=== PATIENT | female | born 1950 | race Caucasian/White ===

== ENCOUNTER 2017-11-10 14:52 | Outpatient (CLI) | payer MEDICARE, BC | END 2017-11-10 14:53 | disposition home or self-care (01) | LOC: BICMAMMO 14:52 | PROVIDERS: ATTEND Family Medicine | DX: N63.20 Unspecified lump in the left breast, unspecified quadrant (principal) | CPT/HCPCS: 76642; 77066; G0279 ==

== ENCOUNTER → 2017-11-17 | Day surgery (SDC) | payer MEDICARE, BC | LOC: BICULT 12:37 | PROVIDERS: ATTEND Family Medicine | PROC: 0HBU3ZX Excision of Left Breast, Percutaneous Approach, Diagnostic (ICD-10-PCS; principal; 2017-11-17) | DX: C50.412 Malignant neoplasm of upper-outer quadrant of left female breast (principal) | CPT/HCPCS: 19083; 88305 ==

== ENCOUNTER 2017-12-08 11:04 | Outpatient (CLI) | payer MEDICARE, BC ==
[2017-12-08 11:37] LABS: #Basophils 0.1 thou/uL (0.0-0.2); #Eosinphils 0.3 thou/uL (0.0-0.7); #Lymphocytes 2.2 thou/uL (1.20-3.40); #Monocytes 0.6 thou/uL (0.11-0.59); %Basophils 1.1 % (0.0-1.0); %Eosinophils 4.1 % (0.0-10.0); %Lymphocytes 26.3 % (21.0-51.0); %Monocytes 7.3 % (0.0-10.0); %Neutrophils 61.3 % (42.0-75.0); Hemoglobin 13.8 g/dL (12.0-16.0); Mean Corpuscular HGB CONC 32.8 g/dL (32.0-36.0); Mean Corpuscular Hemoglobin 29.7 pg (27.0-31.0); Mean Corpuscular Volume 90.6 fL (78.0-98.0); Mean Platelet Volume 7.1 fL (7.4-10.4); Platelet Count 256 thou/uL (130-400); RBC Distribution Width 12.9 % (11.5-14.5); Red Blood Cell (RBC) Count 4.65 mill/uL (4.20-5.40); White Blood Cell (WBC) Count 8.2 thou/uL (4.8-10.8)
[2017-12-08 12:00] LABS: Anion Gap 10 mmol/L (10-20); BUN (Urea Nitrogen) 21 mg/dL (9.8-20.1); Calc. Creatinine Clearance 0 mL/min (70-130); Calcium 9.3 mg/dL (7.8-10.44); Carbon Dioxide 30 mmol/L (23-31); Chloride 102 mmol/L (98-107); Estimated GFR-MDRD 82; Glucose 90 mg/dL (80-115); Potassium 3.7 mmol/L (3.5-5.1); Sodium 138 mmol/L (136-145)
== END 2017-12-08 11:05 | disposition home or self-care (01) ==
LOC: LABBT 11:04
PROVIDERS: ATTEND Specialist
DX: Z01.812 Encounter for preprocedural laboratory examination (principal); C50.912 Malignant neoplasm of unspecified site of left female breast
CPT/HCPCS: 80048; 85025; 93005; 93010

== ENCOUNTER 2017-12-13 08:59 | Day surgery (SDC) | payer MEDICARE, BC ==
[2017-12-08 11:38] VITALS: BMI 30.1
[2017-12-13] MEDS ORDERED: Ketorolac Tromethamine 30 MG/ML VIAL ONE (12:02)
[2017-12-13] MEDS ORDERED: Fentanyl 100 MCG/2 ML VIAL ONE ×3 (12:31→15:42)
[2017-12-13] MEDS ORDERED: Bupivacaine/Epinephrine 0.25% 30 ML VIAL ONE (12:37)
[2017-12-13] MEDS ORDERED: Isosulfan Blue 50 MG/5 ML VIAL ONE (12:37)
[2017-12-13] MEDS ORDERED: CEFAZOLIN/Water 2 GM/20 ML SYRINGE ONE (12:59)
--- NOTE | 2017-12-13 13:43 | NM ---
LEFT BREAST LYMPHOSCINTIGRAPHY: Date: 12/13/17 HISTORY: Malignant neoplasm of unspecified site of the left female breast. RADIOPHARMACEUTICAL: 400 microcuries technetium-99m filtered sulfur colloid injected in the left periareolar breast in div ided doses. FINDINGS: There is faint focal uptake in the left axilla. No tracer localization is noted in the internal mamma ry or right axillary lymph nodes. IMPRESSION: Faint visualization of probable left axillary lymph node (sentinel). POS: DORA
[2017-12-13] MEDS ORDERED: Dexamethasone 20 MG/5 ML VIAL ONE (14:59)
[2017-12-13] MEDS ORDERED: PROPOFOL 200 MG/20 ML VIAL ONE (14:59)
[2017-12-13] MEDS ORDERED: Lidocaine 1% PF 5 ML VIAL ONE (14:59)
[2017-12-13] MEDS ORDERED: Ondansetron HCl/PF 4 MG/2 ML Vial ONE (14:59)
--- NOTE | 2017-12-13 15:45 | MMO ---
SURGICAL SPECIMEN RADIOGRAPH OF THE LEFT BREAST: FINDINGS: There is a mass with a surgical clip and a localization wire on the submitted specimen radiograph. The report was called over the telephone to Dr. Shaun Garsia at 2:14 p.m. FERMÍN SUÁREZ POS: DORA
--- NOTE | 2017-12-14 13:38 | OP ---
DATE OF PROCEDURE: 12/13/2017 PREOPERATIVE DIAGNOSIS: Left breast cancer. POSTOPERATIVE DIAGNOSIS: Left breast cancer. OPERATIONS PERFORMED: Left breast ultrasound-guided needle localization, left breast lumpectomy, att empted left axillary sentinel lymph node biopsy, left axillary lymph node dissection. SURGEON: Shaun Garsia M.D. ANESTHESIA: General endotracheal. INDICATIONS: The patient is a 67-year-old white female. She had presented with biopsy proven left b reast cancer in the upper outer portion of her breast. This was relatively close to the axilla. Aft er discussing options, she has elected to proceed with lumpectomy and sentinel lymph node biopsy. Sh e understands that she will likely require postoperative radiation therapy. Preoperative lymphoscintigraphy was attempted, but no nuclear tracer was found within the left axilla . DESCRIPTION OF OPERATION: Informed consent was obtained. The patient was taken to the operating adelaida m where general endotracheal anesthesia was obtained with the patient in supine position. Left breas t was infiltrated with 4 mL of Lymphazurin in the periareolar subdermal tissue and the breast was mas saged for five minutes. Breast was then prepped with ChloraPrep and draped in sterile fashion. Atte ntion was turned to the left axilla. I examined this with the Neoprobe and could find no area of inc reased radioactivity. I then utilized the ultrasound to exactly padmini the location of the malignancy. This was close enough in proximity to the axilla. So, it was decided it will be best to perform th e lumpectomy and the axillary portion of the operation through this same incision. Needle localization was performed using a Kopans wire placed in a lateral to medial fashion through t he inferior portion of the lesion. An elliptical incision was fashioned to incorporate the area of the malignancy. Even though this can cer was relatively large (about 3 cm in diameter) the large size of this patient's breast allowed cole ropriate excision of the overlying skin without undue deformity. Additionally, the malignancy was cl ose to the skin and skin excision would be necessary to achieve appropriate margins. After the incision was created, I again interrogated the axilla with the Neoprobe and again found no evidence of increased radioactivity. I then proceeded with the lumpectomy. Utilizing the elliptical incision, dissection was carried through skin and subcutaneous tissue and a wide margin was obtained around the localizing needle and below the skin the palpable malignancy as well. The specimen was r emoved intact and passed off the field. I inspected the axilla one final time and again found no raul dence of increased radioactivity or blue staining. Blue staining was seen at the level of the malign corrina and it is my suspicion that the location of the malignancy did not allow passage of the lymphati cs from the breast into the axilla and I decided to proceed with an axillary node dissection. The lateral aspect of the pectoralis was dissected up to the axillary vein. Any tissue that was felt to potentially be lymphatics was divided between Hemoclips. The fatty and lymphatic tissue inferior to the axillary vein were dissected and swept out of the axilla inferiorly. There were a couple of visible lymph nodes within this tissue that were removed. The long thoracic and thoracodorsal nerves were identified and preserved. These were each carefully spared and the fatty tissue around this wa s dissected appropriately. The specimen was removed intact and passed off the field as axillary cont ents. Meticulous hemostasis obtained within the wound with electrocautery. A #19 round fluted drain was brought out through the inferior skin flap and secured with a 3-0 nylon suture. Because of the volume of tissue that was excised, I mobilized breast parenchymal flaps off the pector harinder inferiorly and medially to be able to better close the defect in a cosmetically appropriate fash ion. The wound was irrigated with sterile water and all irrigant was aspirated. The wound was close d in layers with 3-0 Vicryl and 4-0 Monocryl suture. Dermabond was placed externally. Occlusive wyatt ssing was placed over the drain exit site. There were no complications. The patient tolerated the p rocedure well and was taken to recovery room in stable condition.
== END 2017-12-13 18:00 | disposition home or self-care (01) ==
LOC: SDC 08:59
PROVIDERS: ATTEND Specialist
PROC: 0HBU0ZZ Excision of Left Breast, Open Approach (ICD-10-PCS; principal; 2017-12-13)
PROC: 07T60ZZ Resection of Left Axillary Lymphatic, Open Approach (ICD-10-PCS; 2017-12-13)
DX: C50.412 Malignant neoplasm of upper-outer quadrant of left female breast (principal); C77.3 Secondary and unspecified malignant neoplasm of axilla and upper limb lymph nodes; E78.5 Hyperlipidemia, unspecified; I10 Essential (primary) hypertension; I25.2 Old myocardial infarction; K21.9 Gastro-esophageal reflux disease without esophagitis; E66.9 Obesity, unspecified; Z68.30 Body mass index [BMI] 30.0-30.9, adult; Z87.891 Personal history of nicotine dependence; Z79.82 Long term (current) use of aspirin; Z79.899 Other long term (current) drug therapy; Z88.0 Allergy status to penicillin; Z88.2 Allergy status to sulfonamides; Z88.1 Allergy status to other antibiotic agents; Z17.0 Estrogen receptor positive status [ER+]
CPT/HCPCS: 19302; 38900; 76098; 78195; 88305; 88307; 96374; A9541; Q9968; J0131; J1100; J1885; J2001; J2405; J2704; J3010

== ENCOUNTER 2018-05-22 18:29 | Inpatient (IN) | payer MEDICARE, BC ==
[2018-05-22] MEDS ORDERED: Nitroglycerin 0.4 MG TAB (25 Tab Bottle) ONE (19:00)
[2018-05-22 19:05] LABS: #Eosinphils 0.3 thou/uL (0.0-0.7); #Lymphocytes 1.5 thou/uL (1.20-3.40); #Monocytes 0.5 thou/uL (0.11-0.59); %Basophils 0.7 % (0.0-1.0); %Eosinophils 5.4 % (0.0-10.0); %Lymphocytes 23.4 % (21.0-51.0); %Monocytes 8.3 % (0.0-10.0); %Neutrophils 62.2 % (42.0-75.0); Hemoglobin 13.4 g/dL (12.0-16.0); Mean Corpuscular HGB CONC 34.3 g/dL (32.0-36.0); Mean Corpuscular Hemoglobin 31.5 pg (27.0-31.0); Mean Corpuscular Volume 91.9 fL (78.0-98.0); Mean Platelet Volume 6.9 fL (7.4-10.4); Platelet Count 273 thou/uL (130-400); RBC Distribution Width 12.4 % (11.5-14.5); Red Blood Cell (RBC) Count 4.23 mill/uL (4.20-5.40); White Blood Cell (WBC) Count 6.4 thou/uL (4.8-10.8)
[2018-05-22 19:28] LABS: ALT (SGPT) 24 U/L (8-55); AST (SGOT) 28 U/L (5-34); Albumin 3.9 g/dL (3.4-4.8); Alkaline Phosphatase 134 U/L (40-150); Anion Gap 12 mmol/L (10-20); BUN (Urea Nitrogen) 18 mg/dL (9.8-20.1); Bilirubin, Total 0.6 mg/dL (0.2-1.2); CK (CPK) 175 U/L (29-168); Calc. Creatinine Clearance 0 mL/min (70-130); Calcium 9.1 mg/dL (7.8-10.44); Carbon Dioxide 25 mmol/L (23-31); Chloride 103 mmol/L (98-107); Estimated GFR-MDRD 67; Globulin 3.3 g/dL (2.4-3.5); Glucose 129 mg/dL (80-115); Potassium 3.1 mmol/L (3.5-5.1); Protein, Total 7.2 g/dL (6.0-8.3); Sodium 137 mmol/L (136-145)
--- NOTE | 2018-05-22 19:39 | RAD ---
PORTABLE AP CHEST X-RAY: 05/22/2018 HISTORY: Mid sternal chest pain for one hour. COMPARISON: 11/12/2013 FINDINGS: The left lateral costophrenic angle is excluded from view. There is persistent biapical pleural thic kening present. The lungs are otherwise clear. The cardiac silhouette and pulmonary vasculature are within normal limits. Surgical clips now overly the left axillary region. Vascular calcifications are seen in the thoracic aorta. IMPRESSION: No acute cardiopulmonary process. POS: DORA
[2018-05-22] MEDS ORDERED: Ondansetron PF 4 MG/2 ML Vial IVP PRN (21:23)
[2018-05-22] MEDS ORDERED: Ondansetron ODT 4 MG TAB SL PRN (21:23)
[2018-05-22] MEDS ORDERED: Acetaminophen 325 MG TAB PO PRN (21:23)
[2018-05-22 21:25] VITALS: BMI 29.7
[2018-05-22] MEDS: Sodium Chloride 0.9% 1,000 ML IV SCH (22:00)
[2018-05-22 22:24] LABS: Troponin I 0.071 ng/mL (< 0.028)
[2018-05-23] MEDS ORDERED: traMADol HCl 50 MG TAB PO PRN (00:15)
[2018-05-23 01:37] LABS: Troponin I 0.174 ng/mL (< 0.028)
[2018-05-23] MEDS ORDERED: Potassium Chloride 40 MEQ in Premix Bag 1 BAG IVPB SCH (05:15)
[2018-05-23] MEDS ORDERED: Enoxaparin Sodium 40 MG/0.4 ML SYRINGE SC SCH ×2 (05:15→09:00)
[2018-05-23] MEDS ORDERED: Potassium Chloride 40 MEQ in Sodium Chloride 0.9% 250 ML 250 ML IVPB SCH (05:30)
[2018-05-23] MEDS ORDERED: Enoxaparin Sodium 80 MG/0.8 ML SYRINGE SC SCH ×2 (05:45→18:00)
[2018-05-23 06:51] LABS: Anion Gap 10 mmol/L (10-20); BUN (Urea Nitrogen) 18 mg/dL (9.8-20.1); Calc. Creatinine Clearance 121 mL/min (70-130); Calcium 8.9 mg/dL (7.8-10.44); Carbon Dioxide 26 mmol/L (23-31); Chloride 107 mmol/L (98-107); Estimated GFR-MDRD 87; Glucose 114 mg/dL (80-115); Magnesium 1.7 mg/dL (1.6-2.6); Potassium 3.5 mmol/L (3.5-5.1); Sodium 139 mmol/L (136-145)
[2018-05-23 07:05] LABS: Troponin I 0.446 ng/mL (< 0.028)
[2018-05-23] MEDS ORDERED: Azelastine 137 MCG/Spray 30 ML NS PRN (07:59)
[2018-05-23] MEDS ORDERED: Aspirin 81 mg Enteric Coated Tablet PO SCH (09:00)
[2018-05-23] MEDS ORDERED: [UNRECOGNIZED DRUG - REMARK] PO SCH (09:00)
[2018-05-23] MEDS ORDERED: Aspirin 325 mg Enteric Coated Tablet PO SCH (09:00)
[2018-05-23] MEDS ORDERED: Communication Order-Pharmacy FS SCH (10:45)
[2018-05-23 10:55] LABS: Cardiac Risk 3.3 (Less than 4.5)
[2018-05-23] MEDS: Losartan 25 MG TAB PO SCH (11:43)
[2018-05-23] MEDS: Calcium Carbonate 500 MG ChewTAB PO SCH ×4 (11:43→20:18)
[2018-05-23] MEDS: Anastrozole 1 MG TAB PO SCH (11:43)
[2018-05-23] MEDS: Pantoprazole 40 MG GRANULES PACKET PO SCH (11:43)
[2018-05-23] MEDS: Clopidogrel Bisulfate 75 MG TAB PO SCH (11:43)
[2018-05-23] MEDS: Loratadine 10 MG TAB PO SCH (11:44)
[2018-05-23] MEDS: Sodium Chloride 0.9% 1,000 ML IV SCH (11:44)
--- NOTE | 2018-05-23 14:04 | HP ---
CHIEF COMPLAINT: Chest pain. HISTORY OF PRESENT ILLNESS: This is a 67-year-old female patient with a history of breast cancer, status post lumpectomy, status post chemotherapy and with a known history of coronary artery disease, who presents to the Emergency Department last night with complaints of sudden onset of substernal chest pain. The patient states that she has been in her usual state of health and doing quite well, when she was doing laundry and developed sudden substernal chest pain. She states that the pain was more severe than her episode of her ID in 2013. She states that the severity was 8/10. No radiation. Positive for shortness of breath. No diaphoresis. No nausea. The pain persisted until she presented to the Emergency Department, and she was given nitroglycerin and had significant relief of her pain. She has had no further episodes of chest pain or shortness of breath. She did feel anxious while she was in the Emergency Department. Stated her blood pressure had been rising and then when she got the nitroglycerin, her pain resolved. Her blood pressure has returned back to normal. PAST MEDICAL HISTORY: Breast cancer, status post lumpectomy, coronary artery disease, cardiac catheterization in 2013, hypertension, hyperlipidemia, gastroesophageal reflux disease, and history of osteoarthritis. ALLERGIES: BACTRIM, CEPHALEXIN, DOXYCYCLINE. SIDE EFFECTS; PENICILLIN, SULFAMETHOXAZOLE. MEDICATIONS: Include hydrochlorothiazide 12.5 mg daily, pantoprazole 40 mg daily, simvastatin 10 mg daily, Princess p.r.n., aspirin 81 mg daily, losartan 25 mg daily, anastrozole 1 mg daily, tramadol 50 mg daily p.r.n. pain. PAST SURGICAL HISTORY: , carpal tunnel release, hernia repair, varicose vein ablation, and breast lumpectomy. PSYCHIATRIC HISTORY: No anxiety or depression. SOCIAL HISTORY: Rare alcohol. No smoking, quit several years ago. REVIEW OF SYSTEMS: As per the history of present illness. CONSTITUTIONAL: She denies any recent fevers, chills, or recent illness. HEENT: Denies headache, visual or hearing changes. Positive history of allergic rhinitis. CARDIAC: As per the history of present illness. No palpitations. No shortness of breath. PULMONARY: Denies cough or hemoptysis. GI: Denies nausea, vomiting, abdominal pain, melena, or hematochezia. GENITOURINARY: Denies dysuria or hematuria. MUSCULOSKELETAL: Positive for chronic joint pain. ONCOLOGY: Positive for breast cancer. PHYSICAL EXAMINATION: VITAL SIGNS: Temperature 98.1, pulse of 86 and regular, respirations 17, blood pressure 114/64, and pulse ox is 94% on room air. GENERAL: She is awake and alert, in no acute distress. Speech is clear. HEENT: Mucosa is moist. NECK: Supple. No JVD, adenopathy, or bruits. HEART: Regular rate and rhythm. CHEST: Nontender. LUNGS: Clear bilaterally. No wheeze, rales, or rhonchi. ABDOMEN: Positive bowel sounds. Soft, nontender, and nondistended. No hepatosplenomegaly. EXTREMITIES: No clubbing or cyanosis. Trace edema bilaterally, worse on the right. No calf tenderness. NEUROLOGIC: Cranial nerves 2 through 12 are grossly intact. LABORATORY DATA: Sodium 139, potassium 3.5, chloride 107, CO2 of 26, BUN and creatinine of 18 and 0.68, serum glucose of 114, calcium of 8.9, magnesium of 1.7. Troponin I from last night 0.010, 0.071, 0.174, and 0.446. BNP was normal at 55.1. White blood cell count 6400, hemoglobin and hematocrit of 13.4 and 38.9, and platelets of 273. DIAGNOSTIC FINDINGS: Chest x-ray revealed no acute disease. EKG revealed normal sinus rhythm with no acute ST-T changes. ASSESSMENT AND PLAN: This is a 67-year-old female with known mild coronary artery disease from a cardiac catheterization in 2013 revealing 10% stenosis at the right coronary artery, now with chest pain and elevated troponin consistent with bhh-XN-pwoafwbkv myocardial infarction. 1. Sws-SV-xwusndfnf myocardial infarction. We will await Cardiology evaluation, possibly requiring repeat cardiac catheterization. 2. Hypertension. We will continue her medications. 3. Hyperlipidemia. We will continue statin therapy. 4. Known coronary artery disease. We will continue aspirin and Plavix. 5. History of breast cancer. We will continue her anastrazole. Job ID: [id number] [facility]
--- NOTE | 2018-05-23 14:20 | CON ---
DATE OF CONSULTATION: 05/23/2018 REASON FOR CONSULTATION: Uhw-YJ-wakpnqjbi myocardial infarction. HISTORY OF PRESENT ILLNESS: Ms. Coronado is a delightful 67-year-old woman, who is resting at home, feeling well, who had the sudden onset of substernal pain across her chest, it was intense. She thought perhaps it was indigestion. She waited a bit. Her initial blood pressure was not elevated, but then it became elevated, she went to the emergency room. She was given nitroglycerin, where her pain was relieved, subsequently found to have increased cardiac enzymes. PAST MEDICAL HISTORY: She does have a history of similar episode in 2014 with increased cardiac enzymes. She was stabilized and underwent cardiac catheterization and she is found to have no obstructive coronary artery disease. There was LAD bridge and 10% plaque in the right coronary artery, but no obstructive plaque. The patient did well following that. She was treated with high-intensity statins up until she thinks about a year ago. The patient has been done well since then and has been feeling fine up until yesterday. She quit smoking over 4 years ago. MEDICATIONS: At home, she was takin. Aspirin 81 mg a day. 2. Protonix 40 mg a day. 3. Calcium. 4. Tramadol. 5. Hydrochlorothiazide. 6. Simvastatin 10 mg each evening. 7. Losartan 25 mg a day. ALLERGIES: DOXYCYCLINE, CEPHALEXIN, PENICILLIN, AND TRIMETHOPRIM. REVIEW OF SYSTEMS: CONSTITUTIONAL: No significant weight gain or loss. VISION: No changes. HEARING: No changes. PULMONARY: No cough or wheezing. GASTROINTESTINAL: No nausea, vomiting, or diarrhea. Reflux has been controlled. SKIN: No rashes. NEUROLOGIC: No unilateral weakness or numbness. PSYCHIATRIC: No unusual depression or anxiety. HEMATOLOGIC: No unusual bruising. GENITOURINARY: No burning with urination. PHYSICAL EXAMINATION: GENERAL: This is a pleasant 67-year-old woman, in no distress, resting comfortably. VITAL SIGNS: Blood pressure 126/74 and pulse 83, regular. HEENT: Eyes, sclerae nonicteric. Mouth, mucous membranes moist. NECK: Supple. No lymphadenopathy. LUNGS: Clear. No wheezing, rales, or rhonchi. CARDIAC: Normal S1 and normal S2. There is no murmur, rub, or gallop. ABDOMEN: Soft and nontender. No hepatosplenomegaly. EXTREMITIES: Warm and dry. No clubbing. No cyanosis or edema. LABORATORY DATA: Peak troponin level is 0.466, it went from 0.071 to 0.174 to 0.466. EKG, incomplete right bundle branch block. The patient had a peak troponin in 2013 of 0.817. ASSESSMENT: 1. Zod-CK-uzpojvyqc myocardial infarction. 2. Previous qju-LQ-lmrbsyvhk infarction in 2014 with no obstructive coronary artery disease. 3. Incomplete right bundle branch block. 4. History of hypercholesterolemia. 5. Received enoxaparin this morning. PLAN: 1. Continue enoxaparin. 2. Check lipids. We will increase statin dose. 3. Discussed options about either repeating cardiac catheterization or doing a stress test. It has been 4-1/2 years since the cardiac catheterization and the most definitive test would be to repeat the cardiac catheterization. The patient agrees with that. She understands risk of stroke, heart attack, iodine allergy, loss of blood supply to leg or kidney, stent thrombosis, stent restenosis. She understands and wished to proceed. This will be arranged for tomorrow morning. Job ID: [id number]
[2018-05-23] MEDS ORDERED: Clopidogrel Bisulfate 300 MG TAB PO SCH (15:30)
[2018-05-23] MEDS ORDERED: Simvastatin 40 MG TAB PO SCH (21:00)
[2018-05-23] MEDS ORDERED: Atorvastatin Calcium 40 MG TAB PO SCH (21:00)
[2018-05-24] MEDS: Clopidogrel Bisulfate 75 MG TAB PO SCH (05:12)
[2018-05-24] MEDS: Anastrozole 1 MG TAB PO SCH (05:12)
[2018-05-24] MEDS: Losartan 25 MG TAB PO SCH (05:12)
[2018-05-24] MEDS: Loratadine 10 MG TAB PO SCH (05:12)
[2018-05-24] MEDS: Sodium Chloride 0.9% 1,000 ML IV SCH ×2 (05:14→15:51)
[2018-05-24] MEDS ORDERED: Diazepam 5 MG TAB PO SCH (06:00)
[2018-05-24] MEDS ORDERED: Midazolam HCl 2 mg/2 ml Vial ONE (07:20)
[2018-05-24] MEDS ORDERED: Fentanyl 100 MCG/2 ML VIAL ONE (07:20)
[2018-05-24] MEDS: Calcium Carbonate 500 MG ChewTAB PO SCH ×2 (08:14→15:51)
[2018-05-24] MEDS: Pantoprazole 40 MG GRANULES PACKET PO SCH (08:14)
[2018-05-24] MEDS ORDERED: Acetaminophen/Codeine 30-300mg Tablet PO PRN ×2 (08:17)
[2018-05-24] MEDS ORDERED: traMADol HCl 50 MG TAB PO PRN (08:17)
[2018-05-24] MEDS ORDERED: Nitroglycerin 0.4 MG TAB (25 Tab Bottle) SL PRN (08:17)
[2018-05-24] MEDS ORDERED: Sodium Chloride 0.9% 200 ML IV SCH (08:30)
[2018-05-24] MEDS ORDERED: Iopamidol 370 76% 100 ML VIAL ONE (09:47)
[2018-05-24 16:20] VITALS: BP 138/70; TEMP 98.6
--- NOTE | 2018-05-25 15:53 | EKG ---
Test Reason : Blood Pressure : / mmHG Vent. Rate : 096 BPM Atrial Rate : 096 BPM P-R Int : 144 ms QRS Dur : 092 ms QT Int : 376 ms P-R-T Axes : 059 -01 056 degrees QTc Int : 475 ms Normal sinus rhythm Possible Left atrial enlargement Low voltage QRS Borderline ECG Confirmed by MIKAELA FERGUSON ([id number]), staff editor MARGARITO GUADARRAMA ([id number]) on 05/25/2018 3:53:09 PM Referred By: Confirmed By:MIKAELA FERGUSON
[2018-05-25] MEDS ORDERED: Atorvastatin Calcium 40 MG TAB PO SCH (21:00)
--- NOTE | 2018-05-26 04:02 | DIS ---
DATE OF ADMISSION: 05/23/2018 DATE OF DISCHARGE: 05/24/2018 ADMISSION DIAGNOSIS: Egg-HS-vmmkcmgfi myocardial infarction. DISCHARGE DIAGNOSIS: Tft-UK-grrsbipzl myocardial infarction. OTHER DIAGNOSES: 1. 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 2. Known coronary artery disease. 3. Hypertension. 4. Hyperlipidemia. 5. History of breast cancer. PROCEDURES: 1. Telemetry monitoring. 2. Cardiac catheterization. 3. Rule out myocardial infarction protocol. CONSULTATIONS: Dr. Tan for Cardiology. HOSPITAL COURSE: This is a 67-year-old female patient, who was admitted following an episode of sudden onset of chest pain. She said it was more severe than her MD in 2013, for which she underwent a cardiac catheterization and found to have mild 10% plaque in her right coronary artery. She was pain-free during this episode after receiving nitroglycerin. In the emergency department, she did rule in for myocardial infarction with elevation in her cardiac enzymes. She was seen by Dr. Tan for evaluation and discussed options, and they opted for repeat cardiac catheterization due to her past history of the mild plaque in her coronary arteries as well as recurrence of her chest pain and elevation in cardiac enzymes. Her cardiac catheterization again revealed mild coronary artery disease with 10% plaque in her right coronary artery. She again was pain-free. Her medications were adjusted as per Dr. Tan and started on Plavix daily as well as increased her statin therapy to a more intense therapy and was stable for discharge later in the day. DISCHARGE PHYSICAL EXAMINATION: VITAL SIGNS: Temperature 98.6, pulse 75, respirations 16, blood pressure 138/70, and pulse ox is 99% on room air. GENERAL: She is awake and alert, no acute distress. Speech is clear. NECK: Supple. HEART: Regular rate and rhythm. LUNGS: Clear. EXTREMITIES: No edema. She is ambulating in the sood. Minimal pain from the catheter site. DISCHARGE MEDICATIONS: Include; 1. Arimidex 1 mg daily. 2. Aspirin 81 mg daily. 3. Lipitor 40 mg daily. 4. Plavix 75 mg daily. 5. Losartan 25 mg daily. 6. Nitroglycerine p.r.n. 7. Protonix 40 mg daily. FOLLOWUP INSTRUCTIONS: The patient is to follow up in my office in [address] Tan in 2 to 3 weeks. Job ID: [id number]
== END 2018-05-24 18:35 | disposition home or self-care (01) | DRG 282 ==
LOC: ERS 18:29 → 2SW 20:18 → OBSVTOIN 05-23 07:58 → 2NO 05-23 13:09
PROVIDERS: ADMIT Family Medicine; ATTEND Family Medicine
DX: I21.4 Non-ST elevation (NSTEMI) myocardial infarction (principal); I10 Essential (primary) hypertension; E78.5 Hyperlipidemia, unspecified; I25.10 Atherosclerotic heart disease of native coronary artery without angina pectoris; Z85.3 Personal history of malignant neoplasm of breast; I25.2 Old myocardial infarction; I45.19 Other right bundle-branch block
CPT/HCPCS: 36415; 71045; 76942; 80048; 80053; 80061; 82550; 83735; 83880; 84484; 85025; 93005; 93010; 93306; 93458; 99152; C1769; J1644; J1650; J2250; J3010; J3480; J7050

== ENCOUNTER 2018-11-18 09:07 | Outpatient (CLI) | payer MEDICARE, BC ==
--- NOTE | 2018-11-18 09:47 | MMO ---
Bilateral MAMMO Bilat Diag DDI+CHIO. CLINICAL HISTORY: Patient is 68 years old and is seen for diagnostic exam. The patient has no personal history of cancer. The patient has a history of left Lumpectomy in December, - malignant and left Ultrasound Guided Core Biopsy in Oct, 2017 - malignant. VIEWS: The views performed were: bilateral craniocaudal with tomosynthesis; bilateral mediolateral oblique with tomosynthesis; and bilateral mediolateral. FILMS COMPARED: The present examination has been compared to a prior imaging study performed at [facility] on 11/10/2017. MAMMOGRAM FINDINGS: There are scattered fibroglandular densities. There is an area of architectural distortion with associated post-surgical scar seen in the upper-outer region of the left breast. There are no suspicious masses, suspicious calcifications, or new areas of architectural distortion. IMPRESSION: A ROUTINE FOLLOW-UP MAMMOGRAM IN 1 YEAR IS RECOMMENDED. THE RESULTS OF THIS EXAM WERE SENT TO THE PATIENT. ACR BI-RADS Category 2 - Benign finding MAMMOGRAPHY NOTE: 1. A negative mammogram report should not delay a biopsy if a dominant of clinically suspicious mass is present. 2. Approximately 10% to 15% of breast cancers are not detected by mammography. 3. Adenosis and dense breasts may obscure an underlying neoplasm.
== END 2018-11-18 09:08 | disposition home or self-care (01) ==
LOC: BICMAMMO 09:07
PROVIDERS: ATTEND Specialist
DX: Z08 Encounter for follow-up examination after completed treatment for malignant neoplasm (principal); Z85.3 Personal history of malignant neoplasm of breast
CPT/HCPCS: 77066; G0279

== ENCOUNTER 2019-07-06 08:48 | Outpatient (CLI) | payer MEDICARE, BC ==
--- NOTE | 2019-07-06 10:33 | ULT ---
ULTRASOUND ABDOMEN COMPLETE: HISTORY: A 68-year-old female with elevated liver function tests. FINDINGS: The gallbladder has normal wall thickness and has no evidence of gallstones or sludge. The hepatic e chogenicity is normal. The kidneys have normal echogenicity, and there is no hydronephrosis. There is no splenomegaly. There is no abdominal aortic aneurysm. No free fluid is identified. The inferi or vena cava is visualized. The pancreas is visualized, although ultrasound is relatively insensitiv e for pancreatic pathology compared to CT and MRI. There is no biliary dilation. The common duct ca liber is 4 mm. IMPRESSION: Normal. jn [] POS: T[facility]
== END 2019-07-06 08:49 | disposition home or self-care (01) ==
LOC: BICULT 08:48
PROVIDERS: ATTEND Family Medicine
DX: R94.5 Abnormal results of liver function studies (principal)
CPT/HCPCS: 93975

== ENCOUNTER 2019-07-27 10:12 | Day surgery (SDC) | payer MEDICARE, BC ==
[2019-07-26 09:56] VITALS: BMI 30.1
[2019-07-27] MEDS ORDERED: Ketorolac Tromethamine 30 MG/ML VIAL ONE (11:59)
[2019-07-27] MEDS ORDERED: Acetaminophen 500 MG TAB ONE (12:00)
--- NOTE | 2019-07-27 12:40 | RAD ---
EXAM: Chest PA and lateral: HISTORY: Preoperative exam. COMPARISON: 11/12/2013 FINDINGS: Heart: Normal cardiac silhouette Aorta: Atherosclerosis of the aortic knob Pulmonary vessels: Normal Costophrenic angles: Costophrenic angles are clear. Lungs: No consolidation or masses. Lungs are hyperinflated. Pneumothorax: No pneumothorax. Bilaterally apical pleural thickening, unchanged Osseous structures: No osseous abnormalities IMPRESSION: No acute cardiopulmonary process.
[2019-07-27 12:43] LABS: #Eosinphils 0.4 thou/uL (0.0-0.7); #Lymphocytes 1.9 thou/uL (1.20-3.40); #Monocytes 0.5 thou/uL (0.11-0.59); #Neutrophils 4.1 thou/uL (1.40-6.50); %Basophils 0.7 % (0.0-1.0); %Eosinophils 5.1 % (0.0-10.0); %Lymphocytes 27.3 % (21.0-51.0); %Monocytes 7.5 % (0.0-10.0); %Neutrophils 59.4 % (42.0-75.0); Hemoglobin 13.5 g/dL (12.0-16.0); Mean Corpuscular HGB CONC 31.8 g/dL (32.0-36.0); Mean Corpuscular Hemoglobin 29.3 pg (27.0-31.0); Mean Corpuscular Volume 92.1 fL (78.0-98.0); Mean Platelet Volume 6.8 fL (7.4-10.4); Platelet Count 282 thou/uL (130-400); RBC Distribution Width 12.4 % (11.5-14.5)
[2019-07-27 13:01] LABS: Anion Gap 11 mmol/L (10-20); BUN (Urea Nitrogen) 19 mg/dL (9.8-20.1); Calc. Creatinine Clearance 108 mL/min (70-130); Calcium 9.1 mg/dL (7.8-10.44); Carbon Dioxide 28 mmol/L (23-31); Chloride 105 mmol/L (98-107); Estimated GFR-MDRD 77; Glucose 90 mg/dL (80-115); Sodium 140 mmol/L (136-145)
[2019-07-27] MEDS ORDERED: Levofloxacin 500 mg/D5W 100 ml Premix Bag ONE (13:19)
[2019-07-27] MEDS ORDERED: Fentanyl 100 MCG/2 ML VIAL ONE (13:36)
[2019-07-27] MEDS ORDERED: Lidocaine 1% w/Epinephrine 1:100K 20 ML VIAL ONE (13:42)
[2019-07-27] MEDS ORDERED: Bupivacaine 0.25% HCL 30 ML VIAL ONE (13:42)
[2019-07-27] MEDS ORDERED: Bacitracin Zinc Ointment 30 gm TUBE ONE (14:42)
[2019-07-27] MEDS ORDERED: Ondansetron PF 4 MG/2 ML Vial ONE (15:47)
[2019-07-27] MEDS ORDERED: Lidocaine 1% PF 5 ML VIAL ONE (15:47)
[2019-07-27] MEDS ORDERED: Rocuronium Bromide 10 MG/ML (10ML VIAL) ONE (15:47)
[2019-07-27] MEDS ORDERED: diphenhydrAMINE 50 MG/ML VIAL ONE (15:47)
[2019-07-27] MEDS ORDERED: Labetalol HCl 100 MG/20 ML VIAL ONE (15:47)
[2019-07-27] MEDS ORDERED: Dexamethasone 20 MG/5 ML VIAL ONE (15:47)
[2019-07-27] MEDS ORDERED: Succinylcholine Chloride 20 MG/ML 10 ml SYRINGE FS ONE (15:47)
[2019-07-27] MEDS ORDERED: EPHEDRINE 25 MG/5 ML SYRINGE ONE (15:47)
[2019-07-27] MEDS ORDERED: PHENYLEPHRINE-NS 100 MCG/ML 10 ML SYRINGE ONE (15:47)
[2019-07-27] MEDS ORDERED: PROPOFOL 200 MG/20 ML VIAL ONE (15:47)
--- NOTE | 2019-07-28 13:40 | OP ---
DATE OF PROCEDURE: 07/27/2019 PREOPERATIVE DIAGNOSIS: Large upper right posterior shoulder lipoma. POSTOPERATIVE DIAGNOSIS: Large upper right posterior shoulder lipoma. PROCEDURES PERFORMED: Excision of a 12 cm right upper shoulder lipoma with drain placement and complex closure. ANESTHESIA: General endotracheal. INDICATIONS: Patient is a 69-year-old female. She presents with a large easily visible soft tissue tumor on the upper aspect of her posterior shoulder centered to the right of midline. She presents at this time for excision. DESCRIPTION OF OPERATION: Informed consent was obtained. Patient taken to the operating room, where general endotracheal anesthesia was obtained with the patient in supine position. She was then rolled over into left lateral decubitus position using the potter bag device. Tape was utilized to pull tissue and hair out of the way to give excellent exposure of the easily visible soft tissue tumor. It was prepped with ChloraPrep and draped in sterile fashion. The tumor was marked in regard to the intended area of excision. Local anesthetic was infiltrated circumferentially using a mixture of 1% lidocaine with epinephrine and 0.25% Marcaine. I created an elliptical incision oriented transversely over the mass. Dissection carried through skin and subcutaneous tissue. Flaps were then raised superiorly and inferiorly to dissect around the lipoma down to the underlying fascia. On the lateral aspect, I then dissected around the tumor also down to the fascia and then dissected the lipoma off the underlying tissue in a lateral to medial fashion. The specimen was removed intact and passed off the field to Pathology. Meticulous hemostasis obtained with electrocautery. A #19 round fluted drain was obtained and brought out laterally and superiorly and secured with 3-0 nylon suture. The skin flaps were then approximated using a running suture of 3-0 Vicryl to approximate the deep layers of the flaps, incorporating bites of the underlying fascia to minimize the space. Skin edges were then approximated with a running suture of 3-0 Prolene. Antibiotic ointment and dry gauze dress were applied. An occlusive dressing was applied over the drain exit site along with Mastisol. There were no complications. Blood loss was minimal. Patient tolerated the procedure well and was taken to recovery room in stable condition. Job ID: [id number]
== END 2019-07-27 16:55 | disposition home or self-care (01) ==
LOC: SDC 10:12
PROVIDERS: ATTEND Specialist
PROC: 0JBD0ZZ Excision of Right Upper Arm Subcutaneous Tissue and Fascia, Open Approach (ICD-10-PCS; principal; 2019-07-27)
DX: D17.79 Benign lipomatous neoplasm of other sites (principal); K21.9 Gastro-esophageal reflux disease without esophagitis; M19.90 Unspecified osteoarthritis, unspecified site; I25.2 Old myocardial infarction; I10 Essential (primary) hypertension; E78.5 Hyperlipidemia, unspecified; I25.10 Atherosclerotic heart disease of native coronary artery without angina pectoris; E55.9 Vitamin D deficiency, unspecified; E66.9 Obesity, unspecified; Z68.30 Body mass index [BMI] 30.0-30.9, adult; Z85.3 Personal history of malignant neoplasm of breast; Z87.891 Personal history of nicotine dependence; Z79.811 Long term (current) use of aromatase inhibitors; Z79.82 Long term (current) use of aspirin; Z79.899 Other long term (current) drug therapy; Z88.0 Allergy status to penicillin; Z88.1 Allergy status to other antibiotic agents; Z88.2 Allergy status to sulfonamides
CPT/HCPCS: 71046; 80048; 85025; 88304; 93005; 93010; J1100; J1200; J1885; J1956; J2001; J2405; J2704; J3010; S0020

== ENCOUNTER 2019-11-20 08:42 | Outpatient (CLI) | payer MEDICARE, BC ==
--- NOTE | 2019-11-20 09:36 | MMO ---
Bilateral MAMMO Bilat Diag DDI+CHIO. CLINICAL HISTORY: Patient is 69 years old and is seen for diagnostic exam. The patient has no personal history of cancer. The patient has a history of left Lumpectomy in December, - malignant and left Ultrasound Guided Core Biopsy in Oct, 2017 - malignant. VIEWS: The views performed were: bilateral mediolateral with tomosynthesis; bilateral craniocaudal with tomosynthesis; bilateral mediolateral oblique with tomosynthesis; left exaggerated craniocaudal; right mediolateral; right craniocaudal spot compression; right mediolateral spot compression with tomosynthesis; and right craniocaudal spot compression with tomosynthesis. FILMS COMPARED: The present examination has been compared to prior imaging studies performed at [facility] on 11/10/2017 and 11/18/2018. This study has been interpreted with the assistance of computer-aided detection. MAMMOGRAM FINDINGS: There are scattered fibroglandular densities. There is a stable post-surgical scar seen in the upper-outer region of the left breast. There are no suspicious masses, suspicious calcifications, or new areas of architectural distortion. IMPRESSION: THERE IS NO MAMMOGRAPHIC EVIDENCE OF MALIGNANCY. A ROUTINE FOLLOW-UP MAMMOGRAM IN 1 YEAR IS RECOMMENDED. THE RESULTS OF THIS EXAM WERE SENT TO THE PATIENT. ACR BI-RADS Category 2 - Benign finding MAMMOGRAPHY NOTE: 1. A negative mammogram report should not delay a biopsy if a dominant of clinically suspicious mass is present. 2. Approximately 10% to 15% of breast cancers are not detected by mammography. 3. Adenosis and dense breasts may obscure an underlying neoplasm. Reported by: JORGE LALA MD Electonically Signed: [id number]
== END 2019-11-20 08:43 | disposition home or self-care (01) ==
LOC: BICMAMMO 08:42
PROVIDERS: ATTEND Internal Medicine Hematology & Oncology
DX: Z08 Encounter for follow-up examination after completed treatment for malignant neoplasm (principal); Z85.3 Personal history of malignant neoplasm of breast
CPT/HCPCS: 77066; G0279

== ENCOUNTER 2020-11-19 08:54 | Outpatient (CLI) | payer MEDICARE, BC | END 2020-11-19 08:55 | disposition home or self-care (01) | LOC: BICMAMMO 08:54 | PROVIDERS: ATTEND Specialist | DX: Z12.31 Encounter for screening mammogram for malignant neoplasm of breast (principal); Z98.890 Other specified postprocedural states | CPT/HCPCS: 77063; 77067 ==

== ENCOUNTER 2021-07-01 08:12 | Outpatient (CLI) | payer MEDICARE, BC | END 2021-07-01 08:13 | disposition home or self-care (01) | LOC: BICULT 08:12 | PROVIDERS: ATTEND Family Medicine | DX: R79.89 Other specified abnormal findings of blood chemistry (principal) | CPT/HCPCS: 76700 ==

== ENCOUNTER 2021-11-21 08:39 | Outpatient (CLI) | payer MEDICARE, BC | END 2021-11-21 08:40 | disposition home or self-care (01) | LOC: BICMAMMO 08:39 | PROVIDERS: ATTEND Specialist | DX: Z12.31 Encounter for screening mammogram for malignant neoplasm of breast (principal); Z98.890 Other specified postprocedural states | CPT/HCPCS: 77063; 77067 ==

== ENCOUNTER 2023-11-25 09:17 | Outpatient (CLI) | payer MEDICARE | END 2023-11-25 09:18 | disposition home or self-care (01) | LOC: BICMAMMO 09:17 | PROVIDERS: ATTEND Internal Medicine Hematology & Oncology | DX: Z12.31 Encounter for screening mammogram for malignant neoplasm of breast (principal); Z13.820 Encounter for screening for osteoporosis; M85.851 Other specified disorders of bone density and structure, right thigh; M85.852 Other specified disorders of bone density and structure, left thigh; Z80.3 Family history of malignant neoplasm of breast; Z85.3 Personal history of malignant neoplasm of breast; Z98.890 Other specified postprocedural states; T38.6X5D Adverse effect of antigonadotrophins, antiestrogens, antiandrogens, not elsewhere classified, subsequent encounter | CPT/HCPCS: 77063; 77067; 77080 ==